=== PATIENT | female | born 1965 | race African-American/Black ===

== ENCOUNTER 2019-06-25 12:01 | Emergency (ER) | payer MEDICAID, OTHER ==
[~2019-06-25] VITALS: Ht 157.5 cm; Wt 127.0 kg
[2019-06-25] MEDS ORDERED: ACETAMINOPHEN 325MG TABLET PO ONE (13:15)
[2019-06-25] MEDS ORDERED: HYDROCODONE/ACETAMINOPHEN 5/325MG TABLET PO ONE (15:00)
[2019-06-25] MEDS ORDERED: MORPHINE SULFATE 4 MG/ML CPJ (NOT FOR IM USE) IV ONE (15:30)
[2019-06-25 17:29] VITALS: BP 130/86
== END 2019-06-25 17:30 | disposition home or self-care (01) ==
LOC: ER 12:16
DX: S82.51XA Displaced fracture of medial malleolus of right tibia, initial encounter for closed fracture (principal); S00.03XA Contusion of scalp, initial encounter; I11.0 Hypertensive heart disease with heart failure; I50.9 Heart failure, unspecified; Z90.710 Acquired absence of both cervix and uterus; W01.0XXA Fall on same level from slipping, tripping and stumbling without subsequent striking against object, initial encounter; Y93.89 Activity, other specified; Y92.89 Other specified places as the place of occurrence of the external cause; Y99.8 Other external cause status
CPT/HCPCS: 29515; 70450; 73600; 96374; 99284; J2270; Z7610

== ENCOUNTER 2020-07-15 14:15 | Inpatient (IN) | payer BC, MEDICAID, OTHER ==
[~2020-07-15] VITALS: Ht 157.5 cm; Wt 134.3 kg
[2020-07-15 15:21] LABS: BASOPHILS % 0.5 % (0.0-2.0); HEMATOCRIT. 30.9 % (36.0-48.0); HEMOGLOBIN. 10.1 g/dL (12.0-16.0); LYMPHOCYTES % 17.6 % (20.0-50.0); MEAN CORPUSCULAR HEMOGLOBIN 26.1 pg (28.0-32.0); MEAN CORPUSCULAR VOLUME 79.8 fL (81.0-99.0); MEAN PLATELET VOLUME 7.6 fl (7.4-10.4); MONOCYTES % 8.2 % (2.0-8.0); NEUTROPHILS % 72.7 % (40.0-76.0); PLATELET 413 x1000/uL (130-400); RED BLOOD CELL COUNT 3.87 mill/uL (4.2-5.4); RED CELL DISTRIBUTION WIDTH 21.4 % (11.6-14.6)
[2020-07-15 15:26] LABS: CHLORIDE 102 mEq/L (98-107)
[2020-07-15 15:28] LABS: PROTHROMBIN TIME 10.3 sec (9.6-11.0)
[2020-07-15 15:39] LABS: HCG SCREEN NEGATIVE
[2020-07-15] MEDS ORDERED: MORPHINE SULFATE 4 MG/ML CPJ (NOT FOR IM USE) IV ONE (16:00)
[2020-07-15] MEDS ORDERED: ONDANSETRON HCL 4MG/2ML INJ IV ONE (16:00)
[2020-07-15] MEDS ORDERED: POTASSIUM CHLORIDE INJ 40 MEQ in DEXT 5% WATER 250 ML IV NR (17:15)
[2020-07-15] MEDS ORDERED: KETOROLAC 30MG/ML VIAL IV ONE (17:15)
[2020-07-15] MEDS ORDERED: SODIUM CHLORIDE 0.9% 1,000 ML IV SCH (18:30)
[2020-07-15] MEDS: MORPHINE SULFATE 4 MG/ML CPJ (NOT FOR IM USE) IV PRN (20:40)
[2020-07-15] MEDS: ONDANSETRON HCL 4MG/2ML INJ IV PRN (20:40)
[2020-07-15] MEDS ORDERED: BUPIVACAINE HCL 0.5% (5MG/ML) 50ML ONE (21:01)
[2020-07-15] MEDS ORDERED: FENTANYL CITRATE/PF 50MCG/ML 2ML VIAL ONE ×2 (21:19→21:38)
[2020-07-15] MEDS ORDERED: SODIUM CHLORIDE 0.9% 10ML VIAL ONE (21:19)
[2020-07-15] MEDS ORDERED: METOCLOPRAMIDE HCL 10MG/2ML VIAL ONE (21:19)
[2020-07-15] MEDS ORDERED: NEOSTIGMINE METHYLSULFATE 1MG/ML 10 ML VIAL ONE (21:19)
[2020-07-15] MEDS ORDERED: PHENYLEPHRINE HCL 10 MG/ML 1ML (IV VIAL) IV ONE (21:19)
[2020-07-15] MEDS ORDERED: ROCURONIUM BROMIDE 10MG/ML VIAL 5ML IV ONE (21:19)
[2020-07-15] MEDS ORDERED: SUCCINYLCHOLINE CHLORIDE 200MG/10ML IV ONE (21:19)
[2020-07-15] MEDS ORDERED: GLYCOPYRROLATE 0.2 MG/ML 2ML VIAL ONE (21:19)
[2020-07-15] MEDS ORDERED: PROPOFOL 200MG/20ML VIAL IV ONE (21:19)
[2020-07-15] MEDS ORDERED: CEFAZOLIN SODIUM 1000MG/VIAL ONE (21:19)
[2020-07-15] MEDS ORDERED: ONDANSETRON HCL 4MG/2ML INJ ONE (21:19)
[2020-07-15] MEDS ORDERED: MIDAZOLAM HCL 2 MG/2 ML VIAL ONE (21:19)
[2020-07-15] MEDS ORDERED: EPHEDRINE SULFATE 50MG/ML VIAL ONE (21:19)
[2020-07-15] MEDS ORDERED: ONDANSETRON HCL 4MG/2ML INJ IV PRN (21:30)
[2020-07-15] MEDS ORDERED: ALBUMIN HUMAN 12.5G/250ML (5%) IV ONE (21:31)
[2020-07-16] VITALS (7 sets, daily range): BP systolic 103–127; BP diastolic 63–81
[2020-07-16] MEDS: MORPHINE SULFATE 4 MG/ML CPJ (NOT FOR IM USE) IV PRN ×3 (01:41→21:23)
[2020-07-16] MEDS: CEFAZOLIN 1000MG PREMIX 50 ML IV SCH ×3 (05:23→23:14)
[2020-07-16] MEDS: DEXT 5%/0.45% NACL KCL 20MEQ/L 1,000 ML IV SCH ×2 (05:23→14:00)
[2020-07-16 06:12] LABS: CHLORIDE 107 mEq/L (98-107)
[2020-07-16 06:19] LABS: PHOSPHORUS 2.7 mg/dL (2.5-4.9)
[2020-07-16 06:23] LABS: BASOPHILS % 0.6 % (0.0-2.0); HEMATOCRIT. 29.4 % (36.0-48.0); HEMOGLOBIN. 9.6 g/dL (12.0-16.0); MEAN CORPUSCULAR HEMOGLOBIN 26.1 pg (28.0-32.0); MEAN CORPUSCULAR VOLUME 80.3 fL (81.0-99.0); MEAN PLATELET VOLUME 8.1 fl (7.4-10.4); MONOCYTES % 8.5 % (2.0-8.0); NEUTROPHILS % 70.9 % (40.0-76.0); PLATELET 389 x1000/uL (130-400); RED BLOOD CELL COUNT 3.66 mill/uL (4.2-5.4); RED CELL DISTRIBUTION WIDTH 21.7 % (11.6-14.6)
[2020-07-16] MEDS ORDERED: LACT10SO30 MT (07:37)
[2020-07-16] MEDS ORDERED: BUME1TAB33 MT (07:37)
[2020-07-16] MEDS ORDERED: POLY17PO3 MT ×2 (07:37)
[2020-07-16] MEDS ORDERED: SPIR25TA MT (07:37)
[2020-07-16] MEDS ORDERED: APIX5TAB MT (07:37)
[2020-07-16] MEDS ORDERED: PROT40 MT (07:37)
[2020-07-16] MEDS ORDERED: METO10TA8 PO (07:37)
[2020-07-16] MEDS ORDERED: OXYC-662 MT (07:37)
[2020-07-16] MEDS ORDERED: METO10TA8 MT (07:37)
[2020-07-16] MEDS ORDERED: LEVO25TA2 MT (07:37)
[2020-07-16] MEDS ORDERED: ZOLP10TA2 MT (07:37)
[2020-07-16] MEDS ORDERED: FAMOTIDINE 20MG/2ML VIAL IV SCH (09:00)
[2020-07-16] MEDS: PANTOPRAZOLE SODIUM 40 MG/VIAL IV SCH (09:29)
[2020-07-16] MEDS: METRONIDAZOLE 500 MG PREMIX 100 ML IV SCH ×2 (09:31→18:46)
[2020-07-16] MEDS: MORPHINE SULFATE 2 MG/ML CPJ (NOT FOR IM USE) IV PRN ×4 (09:56→23:12)
[2020-07-16] MEDS ORDERED: ZOLPIDEM TARTRATE 5MG TABLET PO PRN (14:30)
[2020-07-16] MEDS ORDERED: DICYCLOMINE HCL 10MG CAPSULE PO PRN (14:30)
[2020-07-16] MEDS: APIXABAN 5 MG TABLET PO SCH (16:45)
[2020-07-17 00:47] VITALS: BP 126/73
[2020-07-17] MEDS: MORPHINE SULFATE 4 MG/ML CPJ (NOT FOR IM USE) IV PRN ×5 (01:20→14:03)
[2020-07-17] MEDS: METRONIDAZOLE 500 MG PREMIX 100 ML IV SCH (01:21)
[2020-07-17 04:00] VITALS: BP 110/68
[2020-07-17] MEDS ORDERED: LEVOTHYROXINE SODIUM 25MCG TABLET PO SCH (07:20)
[2020-07-17 08:04] VITALS: BP 105/66
[2020-07-17] MEDS: APIXABAN 5 MG TABLET PO SCH (09:32)
[2020-07-17] MEDS: PANTOPRAZOLE SODIUM 40 MG/VIAL IV SCH (09:32)
[2020-07-17 12:03] VITALS: BP 108/76
[2020-07-17] MEDS: ONDANSETRON HCL 4MG/2ML INJ IV PRN (14:01)
[2020-07-17 15:15] VITALS: BP 108/76
[2020-07-17 15:28] VITALS: BP 126/82
== END 2020-07-17 16:30 | disposition home health service (06) | DRG 353 ==
LOC: ER 14:34 → 6WST 17:27 → ENRESERV 23:44
PROVIDERS: ADMIT Internal Medicine; ATTEND Internal Medicine
PROC: 0WQF0ZZ Repair Abdominal Wall, Open Approach (ICD-10-PCS; principal; 2020-07-15)
DX: K46.0 Unspecified abdominal hernia with obstruction, without gangrene (principal); K85.90 Acute pancreatitis without necrosis or infection, unspecified; K56.699 Other intestinal obstruction unspecified as to partial versus complete obstruction; I11.0 Hypertensive heart disease with heart failure; I50.9 Heart failure, unspecified; E03.9 Hypothyroidism, unspecified; E87.6 Hypokalemia; E88.09 Other disorders of plasma-protein metabolism, not elsewhere classified; K21.9 Gastro-esophageal reflux disease without esophagitis; Z20.822 Contact with and (suspected) exposure to COVID-19; K80.20 Calculus of gallbladder without cholecystitis without obstruction; K82.8 Other specified diseases of gallbladder; Z98.84 Bariatric surgery status; Z90.711 Acquired absence of uterus with remaining cervical stump
CPT/HCPCS: 36415; 74176; 80053; 83036; 83735; 84100; 84443; 84703; 85025; 86850; 86900; 87426; 88302; 93005; 93970; 96374; 99285; C9113; J0330; J0690; J1885; J2250; J2270; J2370; J2405; J2704; J2710; J2765; J3010; J3480; J3490; J7060; P9041